=== PATIENT | female | born 1955 | race Hispanic/Latino ===

== ENCOUNTER 2021-03-27 05:44 | Inpatient (IN) | payer OTHER ==
[2021-03-25 10:43] LABS: BASOPHILS % (AUTO) 0.8 % (0.0-5.0); HEMATOCRIT 36.7 % (36-48); LYMPHOCYTES % (AUTO) 13.5 % (21.0-51.0); MEAN CORPUSCULAR HEMOGLOBIN 30.8 pg (27.0-33.0); MEAN CORPUSCULAR HGB CONC 32.7 g/dL (32.0-36.0); MEAN CORPUSCULAR VOLUME 94.1 fL (79-99); MONOCYTES % (AUTO) 7.5 % (3.0-13.0); NEUTROPHILS % (AUTO) 76.9 % (40.0-77.0); PLATELET COUNT (AUTO) 276 K/uL (130-400); RED CELL DISTRIBUTION WIDTH 13.2 % (11.0-15.5); WHITE BLOOD COUNT (AUTO) 7.1 K/uL (4.8-10.8)
[2021-03-25 10:48] LABS: APPEARANCE,URINE TURBID (CLEAR); BILIRUBIN,URINE SMALL (NEGATIVE); COLOR,URINE YELLOW (YELLOW); GLUCOSE, URINE (UA) NEGATIVE (NEGATIVE); KETONES,URINE NEGATIVE (NEGATIVE); LEUKOCYTE ESTERASE ,URINE TRACE (NEGATIVE); NITRATE,URINE POSITIVE (NEGATIVE); OCCULT BLOOD,URINE NEGATIVE (NEGATIVE); PROTEIN,URINE NEGATIVE (NEGATIVE); UROBILINOGEN,URINE 0.2 mg/dL (0.2-1.0)
[2021-03-25 10:50] LABS: BACTERIA,URINE Many /HPF (None Seen); MUCUS,URINE Moderate LPF (None Seen); RBC,URINE 0-1 /HPF (0-1); SQUAMOUS EPITHELIAL CELL,UR Many /HPF (0-2)
[2021-03-25 10:53] LABS: CREATININE 0.6 mg/dL (0.5-1.5)
[2021-03-25 10:56] LABS: INR 1.01 (0.85-1.15)
[2021-03-25 10:58] LABS: PARTIAL THROMBOPLASTIN TIME 24.4 SEC (26.3-35.5)
[2021-03-26 12:34] VITALS: BP 189/85
[2021-03-27] VITALS (12 sets, daily range): BP systolic 143–179; BP diastolic 56–82
[~2021-03-27] VITALS: Ht 154.9 cm; Wt 69.9 kg
[~2021-03-27 05:44] MED LIST: ASPI-1197 PO; ATOR-2 PO; CLOP75TA32 PO; ENAL20TA18 PO; FLUO20CA30 PO; ISOS30TA92 PO; LEVO25CA4 PO; MEMA5TAB42 PO; NITR0.4T50 SL; RANO10003 PO; TOLT4CAP27 PO
[2021-03-27] MEDS ORDERED: 0.9%NACL 1000ML 1,000 ML IV ONE (06:14)
[2021-03-27] MEDS ORDERED: LEVO250T43 PO (07:01)
[2021-03-27] MEDS ORDERED: HEPARIN 10,000 UNIT/10ML (1,000 UNIT/ML) VIAL ONE (07:17)
[2021-03-27] MEDS ORDERED: LIDOCAINE HCL 400MG/20ML VIAL ONE (07:18)
[2021-03-27] MEDS ORDERED: IOHEXOL-350 50ML VIAL IV ONE (07:19)
[2021-03-27] MEDS ORDERED: IOHEXOL 350 MG/ML 100ML INFUS..BTL IV ONE (07:19)
[2021-03-27] MEDS ORDERED: HEPARIN 1,000 UNIT VIAL ONE (07:33)
[2021-03-27] MEDS ORDERED: LABETALOL 20MG VIAL IV ONE (07:48)
[2021-03-27] MEDS ORDERED: HYDRALAZINE 20MG/ML VIAL ONE (07:58)
[2021-03-27] MEDS ORDERED: NITROGLYCERIN 0.4 MG SL TAB SL PRN (08:00)
[2021-03-27] MEDS: 0.9%NACL 10ML VIAL IVP SCH ×2 (08:00→15:01)
[2021-03-27] MEDS ORDERED: 0.9%NACL 1000ML 1,000 ML IV SCH (08:00)
[2021-03-27] MEDS: ENALAPRIL MALEATE 10 MG TABLET PO SCH ×2 (09:10→20:49)
[2021-03-27] MEDS: LEVOFLOXACIN 500 MG TABLET PO SCH (09:10)
[2021-03-27] MEDS: ATORVASTATIN 40 MG TABLET PO SCH (09:10)
[2021-03-27] MEDS: MEMANTINE HCL 5 MG TABLET PO SCH (09:10)
[2021-03-27] MEDS: RANOLAZINE 500 MG TAB.SR.12H PO SCH ×2 (09:10→20:48)
[2021-03-27] MEDS: LEVOTHYROXINE 25 MCG TABLET PO SCH (09:11)
[2021-03-27] MEDS: ISOSORBIDE MONO 30MG SR TAB PO SCH (09:11)
[2021-03-27] MEDS: FLUOXETINE HCL 20 MG CAPSULE PO SCH (09:11)
[2021-03-27] MEDS ORDERED: ALPRAZOLAM 0.25 MG TABLET PO PRN (14:30)
[2021-03-27] MEDS: TOLTERODINE 4 MG PO SCH (20:05)
[2021-03-27] MEDS ORDERED: METOPROLOL TARTRATE 25 MG TAB PO SCH (21:00)
[2021-03-28] VITALS: BP 155/71
[2021-03-28 04:00] VITALS: BP 158/70
[2021-03-28 04:51] LABS: HEMATOCRIT 35.3 % (36-48); MEAN CORPUSCULAR HEMOGLOBIN 30.1 pg (27.0-33.0); MEAN CORPUSCULAR HGB CONC 32.9 g/dL (32.0-36.0); MEAN CORPUSCULAR VOLUME 91.7 fL (79-99); RED BLOOD CELL COUNT(AUTO) 3.85 MIL/uL (4.00-5.50); RED CELL DISTRIBUTION WIDTH 13.2 % (11.0-15.5); WHITE BLOOD COUNT (AUTO) 6.5 K/uL (4.8-10.8)
[2021-03-28 05:07] LABS: ALBUMIN 3.1 g/dL (3.5-5.0); BILIRUBIN,TOTAL 0.5 mg/dL (0.2-1.0); CREATININE 0.7 mg/dL (0.5-1.5); POTASSIUM 3.6 mmol/L (3.5-5.1); TOTAL PROTEIN, SERUM 6.5 g/dL (6.0-8.3)
[2021-03-28 05:10] LABS: INR 1.05 (0.85-1.15); PROTHROMBIN TIME 11.4 SEC (9.6-11.6)
[2021-03-28 08:09] VITALS: BP 161/88
[2021-03-28] MEDS: ATORVASTATIN 40 MG TABLET PO SCH (09:03)
[2021-03-28] MEDS: ASPIRIN 81 MG EC TAB PO SCH (09:03)
[2021-03-28] MEDS: NIFEDIPINE ER 30 MG TAB PO SCH (09:03)
[2021-03-28] MEDS: ISOSORBIDE MONO 30MG SR TAB PO SCH (09:04)
[2021-03-28] MEDS: FLUOXETINE HCL 20 MG CAPSULE PO SCH (09:04)
[2021-03-28] MEDS: LEVOFLOXACIN 500 MG TABLET PO SCH (09:04)
[2021-03-28] MEDS: LEVOTHYROXINE 25 MCG TABLET PO SCH (09:04)
[2021-03-28] MEDS: MEMANTINE HCL 5 MG TABLET PO SCH (09:04)
[2021-03-28] MEDS: RANOLAZINE 500 MG TAB.SR.12H PO SCH ×2 (09:04→20:44)
[2021-03-28] MEDS: ENALAPRIL MALEATE 10 MG TABLET PO SCH ×2 (09:05→20:45)
[2021-03-28] MEDS: 0.9%NACL 10ML VIAL IVP SCH ×3 (09:05→16:22)
[2021-03-28 11:34] VITALS: BP 150/57
[2021-03-28 16:00] VITALS: BP 123/62
[2021-03-28 20:00] VITALS: BP 125/68
[2021-03-28] MEDS: TOLTERODINE 4 MG PO SCH (20:43)
[2021-03-29] VITALS (40 sets, daily range): BP systolic 31–153; BP diastolic 0–87
[2021-03-29] MEDS: 0.9%NACL 10ML VIAL IVP SCH ×3 (00:24→16:00)
[2021-03-29 04:26] LABS: HEMATOCRIT 34.2 % (36-48); MEAN CORPUSCULAR HEMOGLOBIN 30.6 pg (27.0-33.0); MEAN CORPUSCULAR HGB CONC 33.3 g/dL (32.0-36.0); MEAN CORPUSCULAR VOLUME 91.9 fL (79-99); RED BLOOD CELL COUNT(AUTO) 3.72 MIL/uL (4.00-5.50); RED CELL DISTRIBUTION WIDTH 13.2 % (11.0-15.5)
[2021-03-29 04:32] LABS: CREATININE 0.7 mg/dL (0.5-1.5); POTASSIUM 3.6 mmol/L (3.5-5.1)
[2021-03-29] MEDS ORDERED: NOREPINEPHRINE BITARTRATE 8 MG in DEXTROSE 5%-WATER 250 ML IV PRN (07:30)
[2021-03-29] MEDS ORDERED: AMINOCAPROIC ACID 5,000MG VIAL 15,000 MG in 0.9% NACL 500ML IV.SOLN 420 ML IV PRN (07:30)
[2021-03-29] MEDS ORDERED: EPINEPHRINE PF 1MG AMP 10 MG in 0.9% NACL 250ML 240 ML IV PRN (07:30)
[2021-03-29] MEDS: ENALAPRIL MALEATE 10 MG TABLET PO SCH (09:00)
[2021-03-29] MEDS: RANOLAZINE 500 MG TAB.SR.12H PO SCH (09:00)
[2021-03-29] MEDS: LEVOTHYROXINE 25 MCG TABLET PO SCH (09:00)
[2021-03-29] MEDS: NIFEDIPINE ER 30 MG TAB PO SCH (09:00)
[2021-03-29] MEDS: ASPIRIN 81 MG EC TAB PO SCH (09:00)
[2021-03-29] MEDS: ISOSORBIDE MONO 30MG SR TAB PO SCH (09:00)
[2021-03-29] MEDS: FLUOXETINE HCL 20 MG CAPSULE PO SCH (09:00)
[2021-03-29] MEDS: LEVOFLOXACIN 500 MG TABLET PO SCH (09:00)
[2021-03-29] MEDS: ATORVASTATIN 40 MG TABLET PO SCH (09:00)
[2021-03-29] MEDS: MEMANTINE HCL 5 MG TABLET PO SCH (09:00)
[2021-03-29] MEDS ORDERED: NITROGLYCERIN 50MG/D5W 250ML 1 BOT ONE (10:04)
[2021-03-29] MEDS ORDERED: CEFAZOLIN SODIUM 1 GM VIAL ONE (10:39)
[2021-03-29] MEDS ORDERED: PAPAVERINE HCL 30 MG/ML 2ML VIAL ONE (10:39)
[2021-03-29] MEDS ORDERED: CEFAZOLIN SODIUM 1 GM VIAL IVP PRN (11:00)
[2021-03-29] MEDS ORDERED: CITRIC ACID/SODIUM CITRATE 30 ML UDCUP ONE (12:18)
[2021-03-29] MEDS ORDERED: ESMOLOL HCL 10 MG/ML 10 ML VIAL ONE (12:21)
[2021-03-29] MEDS ORDERED: EPINEPHRINE PF 1MG AMP ONE (12:21)
[2021-03-29] MEDS ORDERED: HEPARIN 10,000 UNIT/10ML (1,000 UNIT/ML) VIAL ONE (12:21)
[2021-03-29] MEDS ORDERED: AMINOCAPROIC ACID 5,000MG VIAL ONE (12:21)
[2021-03-29] MEDS ORDERED: NOREPINEPHRINE BITARTRATE 1 MG/1 ML ML IV ONE (12:21)
[2021-03-29] MEDS ORDERED: SODIUM BICARB 50MEQ 50ML VIAL 150 ML ONE (12:21)
[2021-03-29] MEDS ORDERED: PROTAMINE SULFATE 10 MG/ML 25ML VIAL IV ONE (12:21)
[2021-03-29] MEDS ORDERED: LIDOCAINE PF 100MG/5ML (2%) SYRINGE 5ML ONE (12:21)
[2021-03-29] MEDS ORDERED: FENTANYL CITRATE PF 50 MCG/1 ML 20ML VIAL IJ ONE (12:22)
[2021-03-29] MEDS ORDERED: MIDAZOLAM HCL 1 MG/ML 2ML VIAL ONE (12:22)
[2021-03-29] MEDS ORDERED: PROPOFOL 10 MG/ML 20ML VIAL IV ONE (12:22)
[2021-03-29] MEDS ORDERED: ROCURONIUM 10MG/1ML SYR 10 MG/ML ML ONE (12:22)
[2021-03-29] MEDS ORDERED: KETAMINE 50MG/ML SYRINGE 50 MG/ML DISP.SYRIN IV ONE (12:23)
[2021-03-29 13:22] LABS: ABG BASE EXCESS -3.5 mmol/L (-2.0-3.0); ABG HCO3 20.7 mmol/L (21.0-28.0); ABG OXYGEN SATURATION 99.6 % (95.0-99.0); ABG PCO2 34 mmHg (32-45)
[2021-03-29] MEDS ORDERED: HEPARIN 10,000 UNIT VIAL IJ ONE (14:24)
[2021-03-29 15:15] LABS: ABG HCO3 22.8 mmol/L (21.0-28.0); ABG OXYGEN SATURATION 99.3 % (95.0-99.0); ABG PCO2 30 mmHg (32-45)
[2021-03-29] MEDS ORDERED: EPINEPHRINE PF 1MG AMP 10 MG in DEXTROSE 5%-WATER 250 ML IV PRN (15:30)
[2021-03-29] MEDS ORDERED: DEXTROSE 50%-WATER 50 ML DISP.SYRIN IV PRN (15:30)
[2021-03-29] MEDS ORDERED: 0.9%NACL 1000ML 1,000 ML IV SCH (15:30)
[2021-03-29] MEDS ORDERED: ACETAMINOPHEN 650 MG SUPPOSITORY RC PRN (15:30)
[2021-03-29] MEDS ORDERED: POTASSIUM PHOS 15 mMOL+NS250ML 250 ML IV PRN (15:30)
[2021-03-29] MEDS ORDERED: NOREPINEPHRIN 4MG/NS 250ML 250 ML IV PRN (15:30)
[2021-03-29] MEDS ORDERED: NITROGLYCERIN 50MG/D5W 250ML 250 BOT IV SCH (15:30)
[2021-03-29] MEDS ORDERED: PROPOFOL 1000 MG/100 ML 100 ML IV PRN (15:30)
[2021-03-29] MEDS ORDERED: TRAMADOL HCL 50 MG TABLET PO PRN (15:30)
[2021-03-29] MEDS ORDERED: 0.9%NACL 10ML VIAL IVP PRN (15:30)
[2021-03-29] MEDS ORDERED: ALBUMIN (HUMAN) 5% 250 ML IV PRN (15:30)
[2021-03-29] MEDS ORDERED: ONDANSETRON 4MG INJ IV PRN (15:30)
[2021-03-29] MEDS ORDERED: MORPHINE 4 MG SYG IV PRN (15:30)
[2021-03-29] MEDS ORDERED: 0.9% NACL 500ML IV.SOLN 500 ML IV SCH (15:30)
[2021-03-29] MEDS ORDERED: AMINOCAPROIC ACID 5,000MG VIAL 15,000 MG in 0.9% NACL 250ML 250 ML IV SCH (15:30)
[2021-03-29] MEDS ORDERED: GLUCAGON 1MG KIT 1 MG ML IM PRN (15:30)
[2021-03-29] MEDS ORDERED: ALBUMIN (HUMAN) 5% 0 ML IV ONE (15:49)
[2021-03-29 16:09] LABS: MEAN CORPUSCULAR HEMOGLOBIN 30.6 pg (27.0-33.0); MEAN CORPUSCULAR HGB CONC 32.9 g/dL (32.0-36.0); RED BLOOD CELL COUNT(AUTO) 2.58 MIL/uL (4.00-5.50); RED CELL DISTRIBUTION WIDTH 13.4 % (11.0-15.5); WHITE BLOOD COUNT (AUTO) 25.3 K/uL (4.8-10.8)
[2021-03-29] MEDS ORDERED: ALBUMIN (HUMAN) 5% 250 ML IV ONE ×2 (16:13→16:19)
[2021-03-29 16:19] LABS: INR 1.29 (0.85-1.15); PROTHROMBIN TIME 13.7 SEC (9.6-11.6)
[2021-03-29 16:20] LABS: CREATININE 0.6 mg/dL (0.5-1.5); MAGNESIUM 1.5 mg/dL (1.80-2.40); PARTIAL THROMBOPLASTIN TIME 24.2 SEC (26.3-35.5); PHOSPHORUS 5.2 mg/dL (2.5-4.9)
[2021-03-29 16:26] LABS: ABG BASE EXCESS -5.2 mmol/L (-2.0-3.0); ABG HCO3 18.4 mmol/L (21.0-28.0); ABG OXYGEN SATURATION 98.6 % (95.0-99.0); ABG PCO2 29 mmHg (32-45)
[2021-03-29] MEDS: POTASSIUM CHLORIDE 20MEQ/100ML 100 ML IV PRN ×3 (16:41→20:14)
[2021-03-29] MEDS: INSULIN REGULAR, HUMAN 3ML 100 UNIT in 0.9%NACL 100ML 99 ML IV SCH ×2 (16:45)
[2021-03-29] MEDS: SODIUM BICARB 50MEQ 50ML VIAL IV PRN ×3 (17:13→21:28)
[2021-03-29] MEDS: MAGNESIUM 2GM PREMIX 50ML 50 ML IV PRN (17:51)
[2021-03-29] MEDS: MORPHINE 2 MG SYG IV PRN ×2 (18:20→21:28)
[2021-03-29 19:54] LABS: ABG BASE EXCESS -1.2 mmol/L (-2.0-3.0); ABG HCO3 22.9 mmol/L (21.0-28.0); ABG OXYGEN SATURATION 98.2 % (95.0-99.0); ABG PCO2 35 mmHg (32-45)
[2021-03-29] MEDS: FAMOTIDINE 20MG VIAL IV SCH (20:14)
[2021-03-29] MEDS: CEFAZOLIN SODIUM 1 GM VIAL IV SCH (20:14)
[2021-03-29] MEDS: TOLTERODINE 4 MG PO SCH (21:00)
[2021-03-29 21:14] LABS: ABG BASE EXCESS -1.8 mmol/L (-2.0-3.0); ABG HCO3 22.4 mmol/L (21.0-28.0); ABG OXYGEN SATURATION 97.8 % (95.0-99.0); ABG PCO2 35 mmHg (32-45)
[2021-03-29 22:44] LABS: ABG BASE EXCESS 2.3 mmol/L (-2.0-3.0); ABG HCO3 25.8 mmol/L (21.0-28.0); ABG OXYGEN SATURATION 98.3 % (95.0-99.0); ABG PCO2 36 mmHg (32-45)
[2021-03-30] VITALS (39 sets, daily range): BP systolic 91–145; BP diastolic 36–78
[2021-03-30 00:41] LABS: ABG BASE EXCESS 1.5 mmol/L (-2.0-3.0); ABG HCO3 26.9 mmol/L (21.0-28.0); ABG OXYGEN SATURATION 97.3 % (95.0-99.0); ABG PCO2 47 mmHg (32-45)
[2021-03-30] MEDS: 0.9%NACL 10ML VIAL IVP SCH ×3 (01:50→16:00)
[2021-03-30] MEDS: POTASSIUM CHLORIDE 20MEQ/100ML 100 ML IV PRN (01:58)
[2021-03-30 03:55] LABS: MEAN CORPUSCULAR HEMOGLOBIN 30.5 pg (27.0-33.0); MEAN CORPUSCULAR VOLUME 92.4 fL (79-99); RED BLOOD CELL COUNT(AUTO) 2.49 MIL/uL (4.00-5.50); RED CELL DISTRIBUTION WIDTH 13.6 % (11.0-15.5); WHITE BLOOD COUNT (AUTO) 11.6 K/uL (4.8-10.8)
[2021-03-30 04:01] LABS: INR 1.09 (0.85-1.15); PROTHROMBIN TIME 11.8 SEC (9.6-11.6)
[2021-03-30 04:02] LABS: PARTIAL THROMBOPLASTIN TIME 22.5 SEC (26.3-35.5)
[2021-03-30 04:06] LABS: CREATININE 0.8 mg/dL (0.5-1.5); POTASSIUM 4.1 mmol/L (3.5-5.1)
[2021-03-30] MEDS: CEFAZOLIN SODIUM 1 GM VIAL IV SCH ×2 (04:08→12:20)
[2021-03-30 04:39] LABS: ABG BASE EXCESS -0.2 mmol/L (-2.0-3.0); ABG HCO3 24.8 mmol/L (21.0-28.0); ABG OXYGEN SATURATION 97.4 % (95.0-99.0); ABG PCO2 42 mmHg (32-45)
[2021-03-30] MEDS: SODIUM BICARB 50MEQ 50ML VIAL IV PRN (05:25)
[2021-03-30] MEDS: FAMOTIDINE 20MG VIAL IV SCH ×2 (08:26→20:48)
[2021-03-30] MEDS: LEVOTHYROXINE 25 MCG TABLET PO SCH (08:26)
[2021-03-30] MEDS: MEMANTINE HCL 5 MG TABLET PO SCH (08:26)
[2021-03-30] MEDS: FUROSEMIDE 20MG VIAL IV SCH ×2 (08:26→20:49)
[2021-03-30] MEDS: ATORVASTATIN 40 MG TABLET PO SCH (08:26)
[2021-03-30] MEDS: FLUOXETINE HCL 20 MG CAPSULE PO SCH (08:26)
[2021-03-30] MEDS: ASPIRIN 81 MG EC TAB PO SCH (08:26)
[2021-03-30] MEDS: LEVOFLOXACIN 500 MG TABLET PO SCH (08:27)
[2021-03-30] MEDS: CALCIUM GLUC 1GM 1 GM in 0.9%NACL 50ML 50 ML IV PRN (09:17)
[2021-03-30] MEDS: INSULIN REGULAR, HUMAN 3ML 100 UNIT in 0.9%NACL 100ML 99 ML IV SCH ×2 (14:11)
[2021-03-30] MEDS: TRAMADOL HCL 50 MG TABLET PO PRN (20:49)
[2021-03-30] MEDS: TOLTERODINE 4 MG PO SCH (20:50)
[2021-03-31] VITALS (36 sets, daily range): BP systolic 102–152; BP diastolic 53–96
[2021-03-31] MEDS: 0.9%NACL 10ML VIAL IVP SCH ×4 (00:11→23:06)
[2021-03-31] MEDS: TRAMADOL HCL 50 MG TABLET PO PRN ×2 (03:44→21:14)
[2021-03-31 04:08] LABS: HEMATOCRIT 26.2 % (36-48); MEAN CORPUSCULAR HEMOGLOBIN 31.2 pg (27.0-33.0); MEAN CORPUSCULAR HGB CONC 33.2 g/dL (32.0-36.0); MEAN CORPUSCULAR VOLUME 93.9 fL (79-99); RED BLOOD CELL COUNT(AUTO) 2.79 MIL/uL (4.00-5.50); RED CELL DISTRIBUTION WIDTH 14.1 % (11.0-15.5); WHITE BLOOD COUNT (AUTO) 12.5 K/uL (4.8-10.8)
[2021-03-31 04:18] LABS: CREATININE 0.5 mg/dL (0.5-1.5); POTASSIUM 3.4 mmol/L (3.5-5.1)
[2021-03-31] MEDS: POTASSIUM CHLORIDE 20MEQ/100ML 100 ML IV PRN ×3 (05:07→08:25)
[2021-03-31] MEDS: MAGNESIUM 2GM PREMIX 50ML 50 ML IV PRN (06:16)
[2021-03-31] MEDS: ATORVASTATIN 40 MG TABLET PO SCH (08:25)
[2021-03-31] MEDS: ASPIRIN 81 MG EC TAB PO SCH (08:25)
[2021-03-31] MEDS: LEVOTHYROXINE 25 MCG TABLET PO SCH (08:25)
[2021-03-31] MEDS: LEVOFLOXACIN 500 MG TABLET PO SCH (08:25)
[2021-03-31] MEDS: MEMANTINE HCL 5 MG TABLET PO SCH (08:25)
[2021-03-31] MEDS: FLUOXETINE HCL 20 MG CAPSULE PO SCH (08:26)
[2021-03-31] MEDS: FAMOTIDINE 20MG VIAL IV SCH ×2 (08:26→19:34)
[2021-03-31] MEDS: FUROSEMIDE 20 MG TABLET PO SCH ×2 (08:26→17:38)
[2021-03-31] MEDS: METOPROLOL TARTRATE 25 MG TAB PO SCH ×2 (08:26→19:34)
[2021-03-31 12:05] LABS: MAGNESIUM 2.4 mg/dL (1.80-2.40); POTASSIUM 4.2 mmol/L (3.5-5.1)
[2021-03-31] MEDS ORDERED: FUROSEMIDE 20MG VIAL IV ONE (14:00)
[2021-03-31] MEDS ORDERED: AMIODARONE 200 MG TABLET PO ONE (18:56)
[2021-03-31] MEDS ORDERED: AMIODARONE 200 MG TABLET PO SCH (19:00)
[2021-03-31 19:08] LABS: CREATININE 0.7 mg/dL (0.5-1.5); MAGNESIUM 2.2 mg/dL (1.80-2.40)
[2021-03-31] MEDS ORDERED: AMIODARONE 900MG VIAL 150 MG in DEXTROSE 5%-WATER 100 ML IV SCH (20:30)
[2021-03-31] MEDS ORDERED: AMIODARONE 900MG VIAL 900 MG in DEXTROSE 5%-WATER 500 ML IV SCH (20:30)
[2021-03-31] MEDS: TOLTERODINE 4 MG PO SCH (21:00)
[2021-04-01] VITALS (15 sets, daily range): BP systolic 102–136; BP diastolic 43–74
[2021-04-01 04:10] LABS: BASOPHILS % (AUTO) 0.3 % (0.0-5.0); EOSINOPHILS % (AUTO) 0.6 % (0.0-8.0); HEMATOCRIT 28.8 % (36-48); LYMPHOCYTES % (AUTO) 13.8 % (21.0-51.0); MEAN CORPUSCULAR HEMOGLOBIN 30.8 pg (27.0-33.0); MEAN CORPUSCULAR HGB CONC 32.6 g/dL (32.0-36.0); MEAN CORPUSCULAR VOLUME 94.4 fL (79-99); MONOCYTES % (AUTO) 7.4 % (3.0-13.0); NEUTROPHILS % (AUTO) 77.4 % (40.0-77.0); PLATELET COUNT (AUTO) 178 K/uL (130-400); RED BLOOD CELL COUNT(AUTO) 3.05 MIL/uL (4.00-5.50); RED CELL DISTRIBUTION WIDTH 13.8 % (11.0-15.5); WHITE BLOOD COUNT (AUTO) 10.9 K/uL (4.8-10.8)
[2021-04-01 04:29] LABS: ALBUMIN 2.3 g/dL (3.5-5.0); BILIRUBIN,TOTAL 0.8 mg/dL (0.2-1.0); CREATININE 0.6 mg/dL (0.5-1.5); POTASSIUM 3.6 mmol/L (3.5-5.1); TOTAL PROTEIN, SERUM 5.3 g/dL (6.0-8.3)
[2021-04-01] MEDS ORDERED: POTASSIUM CHLORIDE 20MEQ/100ML 100 ML IV PRN (05:00)
[2021-04-01] MEDS ORDERED: LIDOCAINE HCL-MPF 1% 2ML VIAL IV PRN (05:00)
[2021-04-01] MEDS: KCL 20 MEQ ERTAB PO PRN ×3 (06:26→08:33)
[2021-04-01 08:03] LABS: MAGNESIUM 2.1 mg/dL (1.80-2.40)
[2021-04-01] MEDS: 0.9%NACL 10ML VIAL IVP SCH ×3 (08:07→23:33)
[2021-04-01] MEDS: CALCIUM GLUC 1GM 1 GM in 0.9%NACL 50ML 50 ML IV PRN ×2 (08:09→08:28)
[2021-04-01] MEDS: FUROSEMIDE 20 MG TABLET PO SCH ×2 (08:30→17:29)
[2021-04-01] MEDS: MEMANTINE HCL 5 MG TABLET PO SCH (08:30)
[2021-04-01] MEDS: ATORVASTATIN 40 MG TABLET PO SCH (08:30)
[2021-04-01] MEDS: FAMOTIDINE 20MG TAB PO SCH ×2 (08:30→20:43)
[2021-04-01] MEDS: FLUOXETINE HCL 20 MG CAPSULE PO SCH (08:30)
[2021-04-01] MEDS: METOPROLOL TARTRATE 25 MG TAB PO SCH ×2 (08:30→20:43)
[2021-04-01] MEDS: LEVOFLOXACIN 500 MG TABLET PO SCH (08:30)
[2021-04-01] MEDS: LEVOTHYROXINE 25 MCG TABLET PO SCH (08:30)
[2021-04-01] MEDS: ASPIRIN 81 MG EC TAB PO SCH (08:30)
[2021-04-01] MEDS: ENOXAPARIN SODIUM 30 MG/0.3 ML SQ SCH (08:31)
[2021-04-01] MEDS: TOLTERODINE 4 MG PO SCH (19:29)
[2021-04-01] MEDS ORDERED: AMIODARONE 200 MG TABLET PO SCH (21:00)
[2021-04-02] VITALS (7 sets, daily range): BP systolic 123–151; BP diastolic 64–89
[2021-04-02 03:56] LABS: BASOPHILS % (AUTO) 0.3 % (0.0-5.0); EOSINOPHILS % (AUTO) 0.8 % (0.0-8.0); HEMATOCRIT 25.9 % (36-48); LYMPHOCYTES % (AUTO) 16.8 % (21.0-51.0); MEAN CORPUSCULAR HEMOGLOBIN 30.7 pg (27.0-33.0); MEAN CORPUSCULAR HGB CONC 33.6 g/dL (32.0-36.0); MEAN CORPUSCULAR VOLUME 91.5 fL (79-99); MONOCYTES % (AUTO) 8.1 % (3.0-13.0); NEUTROPHILS % (AUTO) 73.5 % (40.0-77.0); PLATELET COUNT (AUTO) 215 K/uL (130-400); RED BLOOD CELL COUNT(AUTO) 2.83 MIL/uL (4.00-5.50); RED CELL DISTRIBUTION WIDTH 13.4 % (11.0-15.5)
[2021-04-02 04:12] LABS: ALBUMIN 2.2 g/dL (3.5-5.0); BILIRUBIN,TOTAL 0.7 mg/dL (0.2-1.0); CREATININE 0.6 mg/dL (0.5-1.5); TOTAL PROTEIN, SERUM 5.4 g/dL (6.0-8.3)
[2021-04-02] MEDS ORDERED: LOSARTAN 25 MG TABLET PO SCH (09:00)
[2021-04-02] MEDS: ATORVASTATIN 40 MG TABLET PO SCH (09:41)
[2021-04-02] MEDS: 0.9%NACL 10ML VIAL IVP SCH ×2 (09:41→16:25)
[2021-04-02] MEDS: ENOXAPARIN SODIUM 30 MG/0.3 ML SQ SCH (09:41)
[2021-04-02] MEDS: METOPROLOL TARTRATE 25 MG TAB PO SCH ×2 (09:42→21:28)
[2021-04-02] MEDS: AMIODARONE 200 MG TABLET PO SCH (09:42)
[2021-04-02] MEDS: LEVOTHYROXINE 25 MCG TABLET PO SCH (09:43)
[2021-04-02] MEDS: ASPIRIN 81 MG EC TAB PO SCH (09:43)
[2021-04-02] MEDS: FAMOTIDINE 20MG TAB PO SCH ×2 (09:43→21:28)
[2021-04-02] MEDS: MEMANTINE HCL 5 MG TABLET PO SCH (09:43)
[2021-04-02] MEDS: LEVOFLOXACIN 500 MG TABLET PO SCH (09:44)
[2021-04-02] MEDS: FUROSEMIDE 20 MG TABLET PO SCH ×2 (09:44→18:08)
[2021-04-02] MEDS: FLUOXETINE HCL 20 MG CAPSULE PO SCH (09:44)
[2021-04-02] MEDS: TRAMADOL HCL 50 MG TABLET PO PRN (10:11)
[2021-04-02] MEDS: TOLTERODINE 4 MG PO SCH (21:00)
[2021-04-03] VITALS: BP 144/67
[2021-04-03 04:00] VITALS: BP 162/81
[2021-04-03 04:18] LABS: HEMATOCRIT 25.9 % (36-48); MEAN CORPUSCULAR HEMOGLOBIN 31.2 pg (27.0-33.0); MEAN CORPUSCULAR HGB CONC 33.6 g/dL (32.0-36.0); MEAN CORPUSCULAR VOLUME 92.8 fL (79-99); RED BLOOD CELL COUNT(AUTO) 2.79 MIL/uL (4.00-5.50); RED CELL DISTRIBUTION WIDTH 13.3 % (11.0-15.5); WHITE BLOOD COUNT (AUTO) 10.1 K/uL (4.8-10.8)
[2021-04-03 04:22] LABS: CREATININE 0.6 mg/dL (0.5-1.5); POTASSIUM 3.3 mmol/L (3.5-5.1)
[2021-04-03] MEDS: POTASSIUM CHLORIDE 10% ELIXIR 20 MEQ/15 ML UDCUP PO PRN ×3 (05:26→17:36)
[2021-04-03 07:44] VITALS: BP 171/80
[2021-04-03] MEDS: FLUOXETINE HCL 20 MG CAPSULE PO SCH (08:50)
[2021-04-03] MEDS: MEMANTINE HCL 5 MG TABLET PO SCH (08:50)
[2021-04-03] MEDS: ATORVASTATIN 40 MG TABLET PO SCH (08:50)
[2021-04-03] MEDS: AMIODARONE 200 MG TABLET PO SCH (08:50)
[2021-04-03] MEDS: FAMOTIDINE 20MG TAB PO SCH ×2 (08:51→21:31)
[2021-04-03] MEDS: ASPIRIN 81 MG EC TAB PO SCH (08:51)
[2021-04-03] MEDS: FUROSEMIDE 20 MG TABLET PO SCH ×2 (08:51→17:36)
[2021-04-03] MEDS: LEVOFLOXACIN 500 MG TABLET PO SCH (08:51)
[2021-04-03] MEDS: LEVOTHYROXINE 25 MCG TABLET PO SCH (08:51)
[2021-04-03] MEDS: METOPROLOL TARTRATE 25 MG TAB PO SCH ×2 (08:51→19:57)
[2021-04-03] MEDS: ENOXAPARIN SODIUM 30 MG/0.3 ML SQ SCH (08:52)
[2021-04-03] MEDS: 0.9%NACL 10ML VIAL IVP SCH ×3 (08:52→16:11)
[2021-04-03] MEDS ORDERED: LOSARTAN 50 MG TABLET PO SCH (09:00)
[2021-04-03 11:05] VITALS: BP 177/83
[2021-04-03] MEDS: HYDRALAZINE 25MG TABLET PO SCH ×3 (12:21→21:32)
[2021-04-03 15:00] VITALS: BP 108/56
[2021-04-03] MEDS: TOLTERODINE 4 MG PO SCH (17:36)
[2021-04-03 20:00] VITALS: BP 145/80
[2021-04-03 20:48] LABS: MAGNESIUM 1.8 mg/dL (1.80-2.40); POTASSIUM 3.5 mmol/L (3.5-5.1)
[2021-04-03] MEDS ORDERED: CALCIUM GLUC 1GM/10ML VIAL IVPB SCH (22:00)
[2021-04-03] MEDS ORDERED: PHARMACY COMMUNICATION MISC SCH (22:00)
[2021-04-03] MEDS ORDERED: CALCIUM GLUC 1GM 2 GM in 0.9%NACL 100ML 100 ML IV ONE (22:00)
[2021-04-03] MEDS: KCL 20 MEQ ERTAB PO PRN (22:29)
[2021-04-03] MEDS ORDERED: MAGNESIUM 2GM PREMIX 50ML 50 ML IV PRN (22:30)
[2021-04-04] MEDS: ACETAMINOPHEN 325 MG TAB PO PRN ×2 (02:56→20:41)
[2021-04-04 08:00] VITALS: BP 129/69
[2021-04-04] MEDS: 0.9%NACL 10ML VIAL IVP SCH (08:42)
[2021-04-04] MEDS ORDERED: METOPROLOL TARTRATE 25 MG TAB PO SCH (09:00)
[2021-04-04] MEDS ORDERED: CLONIDINE HCL 0.1 MG TABLET PO PRN (09:30)
[2021-04-04] MEDS ORDERED: ONDANSETRON 4MG TABLET PO PRN (09:30)
[2021-04-04] MEDS: FUROSEMIDE 20 MG TABLET PO SCH ×2 (10:19→17:25)
[2021-04-04] MEDS: LEVOTHYROXINE 25 MCG TABLET PO SCH (10:19)
[2021-04-04] MEDS: FAMOTIDINE 20MG TAB PO SCH ×2 (10:19→20:03)
[2021-04-04] MEDS: ASPIRIN 81 MG EC TAB PO SCH (10:19)
[2021-04-04] MEDS: LEVOFLOXACIN 500 MG TABLET PO SCH (10:19)
[2021-04-04] MEDS: LOSARTAN 50 MG TABLET PO SCH ×2 (10:20→20:03)
[2021-04-04] MEDS: FLUOXETINE HCL 20 MG CAPSULE PO SCH (10:20)
[2021-04-04] MEDS: MEMANTINE HCL 5 MG TABLET PO SCH (10:20)
[2021-04-04] MEDS: ENOXAPARIN SODIUM 30 MG/0.3 ML SQ SCH (10:21)
[2021-04-04 12:30] VITALS: BP 131/84
[2021-04-04 16:00] VITALS: BP 161/80
[2021-04-04] MEDS: TOLTERODINE 4 MG PO SCH (17:25)
[2021-04-04 19:24] VITALS: BP 142/98
[2021-04-04] MEDS ORDERED: ATORVASTATIN 40 MG TABLET PO SCH (21:00)
[2021-04-04 23:42] VITALS: BP 124/66
[2021-04-05 03:49] VITALS: BP 187/97
[2021-04-05 08:00] VITALS: BP 171/73
[2021-04-05] MEDS: FAMOTIDINE 20MG TAB PO SCH (09:10)
[2021-04-05] MEDS: LOSARTAN 50 MG TABLET PO SCH (09:10)
[2021-04-05] MEDS: ASPIRIN 81 MG EC TAB PO SCH (09:10)
[2021-04-05] MEDS: LEVOTHYROXINE 25 MCG TABLET PO SCH (09:10)
[2021-04-05] MEDS: MEMANTINE HCL 5 MG TABLET PO SCH (09:10)
[2021-04-05] MEDS: FLUOXETINE HCL 20 MG CAPSULE PO SCH (09:11)
[2021-04-05] MEDS: FUROSEMIDE 20 MG TABLET PO SCH (09:11)
[2021-04-05] MEDS: LEVOFLOXACIN 500 MG TABLET PO SCH (09:11)
[2021-04-05] MEDS: ACETAMINOPHEN 325 MG TAB PO PRN (09:12)
[2021-04-05] MEDS: KCL 20 MEQ ERTAB PO PRN (09:14)
[2021-04-05] MEDS: ENOXAPARIN SODIUM 30 MG/0.3 ML SQ SCH (09:14)
[2021-04-05 12:00] VITALS: BP 141/78
[2021-04-05] MEDS ORDERED: FURO20TA6 PO (12:05)
[2021-04-05] MEDS ORDERED: ATOR40TA69 PO (12:05)
[2021-04-05] MEDS ORDERED: AEC81 PO (12:05)
[2021-04-05] MEDS ORDERED: LOSA50TA2 PO (12:05)
== END 2021-04-05 16:19 | disposition home or self-care (01) | DRG 233 ==
LOC: DAH 05:44 → DAHIP 05:45 → DAH 05:47 → 4CH 09:00 → 2CV 03-29 11:04 → 2CH 03-30 05:09 → 2DH 04-01 14:26 → 4CH 04-05 13:42
PROVIDERS: ADMIT Internal Medicine Pulmonary Disease; ATTEND Internal Medicine Pulmonary Disease
PROC: 4A023N7 Measurement of Cardiac Sampling and Pressure, Left Heart, Percutaneous Approach (ICD-10-PCS; 2021-03-27)
PROC: B2111ZZ Fluoroscopy of Multiple Coronary Arteries using Low Osmolar Contrast (ICD-10-PCS; 2021-03-27)
PROC: B2151ZZ Fluoroscopy of Left Heart using Low Osmolar Contrast (ICD-10-PCS; 2021-03-27)
PROC: 021009W Bypass Coronary Artery, One Artery from Aorta with Autologous Venous Tissue, Open Approach (ICD-10-PCS; 2021-03-29)
PROC: 06BQ4ZZ Excision of Left Saphenous Vein, Percutaneous Endoscopic Approach (ICD-10-PCS; 2021-03-29)
PROC: 02100Z9 Bypass Coronary Artery, One Artery from Left Internal Mammary, Open Approach (ICD-10-PCS; principal; 2021-03-29 12:48)
PROC: 30233N1 Transfusion of Nonautologous Red Blood Cells into Peripheral Vein, Percutaneous Approach (ICD-10-PCS; 2021-03-30)
DX: I25.119 Atherosclerotic heart disease of native coronary artery with unspecified angina pectoris (principal); I50.33 Acute on chronic diastolic (congestive) heart failure; N39.0 Urinary tract infection, site not specified; J98.11 Atelectasis; I11.0 Hypertensive heart disease with heart failure; E78.5 Hyperlipidemia, unspecified; B96.1 Klebsiella pneumoniae [K. pneumoniae] as the cause of diseases classified elsewhere; E78.00 Pure hypercholesterolemia, unspecified; Z68.29 Body mass index [BMI] 29.0-29.9, adult; E66.9 Obesity, unspecified; F32.A Depression, unspecified; F41.9 Anxiety disorder, unspecified; I48.0 Paroxysmal atrial fibrillation; E03.9 Hypothyroidism, unspecified; Z20.822 Contact with and (suspected) exposure to COVID-19; Z79.899 Other long term (current) drug therapy; Z95.5 Presence of coronary angioplasty implant and graft; Z90.49 Acquired absence of other specified parts of digestive tract
CPT/HCPCS: 36415; 71045; 71250; 80048; 80053; 81001; 82330; 82435; 82803; 82947; 82948; 83605; 83735; 84100; 84132; 84295; 85018; 85025; 85027; 85347; 85610; 85730; 86850; 86900; 86901; 86923; 87077; 87088; 87186; 87635; 93005; 93458; 93880; 94002; 94010; 94150; 97039; A4606; A7048; C1757; C1760; C1894; G0378; J0171; J0282; J0360; J0610; J0690; J1644; J1650; J1815; J1940; J2001; J2250; J2405; J2440; J2704; J2720; J3010; J3475; J3480; J3490; J7030; J7040; J7050; J7060; J7070; P9016; P9045; Q9967

== ENCOUNTER → 2024-01-19 | Outpatient (CLI) | payer OTHER ==
[~2024-01-19] MED LIST changes: +AEC81 PO; -ASPI-1197 PO; +ATOR40TA69 PO; -CLOP75TA32 PO; +ENAL-91 PO; -ENAL20TA18 PO; +FURO20TA6 PO; +IOHEXOL 350 MG/ML 100ML INFUS..BTL IV ONE; -ISOS30TA92 PO; +LOSA-418 PO; +MEMA5TAB16 PO; -MEMA5TAB42 PO; +METOPROLOL TARTRATE 1 MG/ML 5ML VIAL IV ONE; -RANO10003 PO
== END | disposition home or self-care (01) ==
LOC: RAH 08:38
PROVIDERS: ATTEND Internal Medicine Cardiovascular Disease
DX: I25.10 Atherosclerotic heart disease of native coronary artery without angina pectoris (principal); R07.9 Chest pain, unspecified; Z95.1 Presence of aortocoronary bypass graft
CPT/HCPCS: 75574; Q9967; J3490